=== PATIENT | male | born 1950 | race Caucasian/White ===

== ENCOUNTER → 2017-10-24 | Outpatient (CLI) | payer MEDICARE ==
--- NOTE | 2017-10-24 16:03 | CONS ---
CONSULTATION DATE OF SERVICE: 10/24/2017 67-year-old gentleman has [facility] for possible obstructive sleep apnea-hypopnea syndrome. HISTORY OF PRESENT ILLNESS/SLEEP WAKE EVALUATION: Patient usual sleep schedule from 9:00 to 10:00 p.m. until 6:30 a.m. Sometimes patient has problem with falling asleep. No TV in bedroom. He snores, wakes up with dry mouth, nocturia and sweating up to 3 times at night. No history of hypnagogic hallucinations, sleep paralysis or cataplexy. During the day, patient may feel sleepy, take naps at 1:00 or 2:00 p.m. once. PAST MEDICAL HISTORY: Positive for sinus problems, restriction of nasal breathing, hyperlipidemia, nasal trauma at young age, prostate CA. PAST SURGICAL HISTORY: Radiation therapy 11 years ago for prostate CA and tonsillectomy. MEDICATIONS: Zocor, Singulair, aspirin. SOCIAL HISTORY: Positive for smoking for about 50 years. Presently, the patient smokes less than half pack a day. Alcohol consumption daily, 2 drinks a day. REVIEW OF SYSTEMS: Awakenings from sleep, sometimes tiredness during the day. FAMILY HISTORY: Hyperlipidemia, cancer. PHYSICAL EXAM: GENERAL gentleman without distress. VITAL SIGNS BP on the right arm 191/86, on the left 184/95, HR 64, RR 16, height 5 feet 9-1/2, weight 225, BMI 32.7, temperature 97.6, oxygen saturation at room air 96%. HEENT PERRLA, EOMI, evaluation of oropharynx showed moderately low position of soft palate. Short distance between soft palate and pharyngeal wall. Some restriction of nasal breathing, possibly nasal septum deviation. Wide neck is 17 inches in circumference. NECK Supple, no JVD. Thyroid is not palpable. LUNGS Clear to percussion and to auscultation. Good air exchange. No wheezing or rhonchi. HEART S1, S2 regular. No murmurs, gallops, or rubs. ABDOMEN Slightly obese. Soft and nontender. Bowel sounds are present. No organomegaly appreciated. EXTREMITIES No clubbing or cyanosis. EDGE CUTTER Awake, alert, and oriented X3. Cranial nerves 2 to 7 intact. There is no fasciculation or atrophy. noted. No focal deficits observed. IMPRESSION: 1. Snoring, awakenings from sleep with a dry mouth and sweating. Episodes of excessive daytime sleepiness. Patient takes naps in the middle of the day, wide neck, moderately low position of soft palate. Obstructive sleep apnea-hypopnea syndrome. 2. Mild obesity, BMI 32.7. 3. Hyperlipidemia. 4. Hypertension in the office today. 5. History of sinus problems. 6. Restriction of nasal breathing, possibly nasal septum deviation. 7. History of prostate carcinoma, status post radiation therapy 11 years ago. 8. Status post tonsillectomy. PLAN: 1. Polysomnography for evaluation of patient's breathing during sleep. 2. CPAP/BiPAP titration if sleep study confirms obstructive sleep apnea-hypopnea syndrome. 3. Preferable position during sleep on the side. 4. No driving if patient feels any sleepiness. Patient is aware of civil and criminal liability for unsafe driving. 5. I will see patient for follow up visit to explain results of testing and following plan. Thank you very much for referring this patient for consultation. Sincerely, Sukhjinder Lopez MD, PhD, FAASM Diplomat of [employer] Prom[employer] of [facility] [place] MMODL / GERMAINEN: [id number] /
== END | disposition home or self-care (01) ==
LOC: SLEEP 14:47
PROVIDERS: ATTEND Internal Medicine
DX: G47.33 Obstructive sleep apnea (adult) (pediatric) (principal); E66.9 Obesity, unspecified; E78.5 Hyperlipidemia, unspecified; I10 Essential (primary) hypertension; Z87.09 Personal history of other diseases of the respiratory system; J98.8 Other specified respiratory disorders; Z85.48 Personal history of malignant neoplasm of epididymis; Z85.46 Personal history of malignant neoplasm of prostate; Z92.3 Personal history of irradiation; Z98.890 Other specified postprocedural states; Z68.32 Body mass index [BMI] 32.0-32.9, adult; Z87.891 Personal history of nicotine dependence; Z79.899 Other long term (current) drug therapy; Z79.82 Long term (current) use of aspirin
CPT/HCPCS: 99211